=== PATIENT | male | born 1935 | race African-American/Black ===

== ENCOUNTER 2017-11-18 16:21 | Emergency (ER) | payer MEDICARE ==
[~2017-11-18] VITALS: Ht 188 cm; Wt 91.0 kg
[2017-11-18 16:23] VITALS: BP 120/80
== END 2017-11-18 17:29 | disposition left against medical advice (07) ==
LOC: ER 16:45
DX: R55 Syncope and collapse (principal); Z53.21 Procedure and treatment not carried out due to patient leaving prior to being seen by health care provider